=== PATIENT | male | born 1995 | race Caucasian/White ===

== ENCOUNTER 2017-06-24 13:18 | Emergency (ER) | payer OTHER ==
[2017-06-24 13:35] VITALS: BP 129/72; PULSE 96; TEMP 99.3; BMI 27.4
[2017-06-24] MEDS ORDERED: DIPHTH,PERTUSS(ACELL),TET 0.5 ML DISP.SYRIN IM ONE (13:57)
--- NOTE | 2017-06-24 13:59 | PDOC ---
History of Present Illness <Charly Brown - Last Filed: 06/24/17 15:18> - History of Present Illness Initial Comments: 06/24/17 13:53 CHIEF COMPLAINT: laceration to left leg HISTORY OF PRESENT ILLNESS: 21 yo M with no PMH presents to [facility] with laceration to lower left leg. 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 Patient states he "feels something inside my leg." He does not think he has ever had a tetanus shot. No recent travel or sick contacts. PAST MEDICAL HISTORY: Denies past medical history FAMILY HISTORY: Denies SOCIAL HISTORY: Denies tobacco, alcohol, illicit drug use. SURGICAL HISTORY: Denies REVIEW OF SYSTEMS General/Constitutional: Denies fever or chills. Denies weakness, weight change. HEENT: Denies change in vision. Denies ear pain or discharge. Denies sore throat. Cardiovascular: Denies chest pain or shortness of breath. Respiratory: Denies cough, wheezing, or hemoptysis. Gastrointestinal: Denies nausea, vomiting, diarrhea or constipation. Denies rectal bleeding. Genitourinary: Denies dysuria, frequency, or change in urination. Musculoskeletal: Denies joint or muscle swelling or pain. Denies neck or back pain. Skin and breasts: Denies rash or easy bruising. PHYSICAL EXAM General Appearance: Well-appearing, appropriately dressed. No apparent distress. HEENT: EOMI, PERRLA. No photophobia, scleral icterus. Respiratory/Chest: Lungs CTAB. Cardiovascular: RRR. S1, S2. Gastrointestinal/Abdominal: Normal bowel sounds. Abdomen soft, non-distended. No tenderness or rebound tenderness. No organomegaly, pulsatile mass, guarding , hernia, hepatomegaly, splenomegaly. Musculoskeletal/Extremities: Normal inspection. FROM of all extremities, normal capillary refill. Pelvis Stable. No CVA tenderness. No tenderness to extremities, pedal edema, swelling, erythema or deformity. Integumentary: 4 cm laceration to left medial raymond. No foreign body visualized. Appropriate color, dry, warm. 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 Fully oriented, alert. Appropriate mood/affect. Motor strength 5/5. No appreciable EOM palsy, facial droop or sensory deficit. 06/24/17 13:57 <Natty Ricardo - Last Filed: 06/24/17 15:30> - General Chief Complaint: Laceration Stated Complaint: LT LEG LACERATION Time Seen by Provider: 06/24/17 13:34 Past History <Charly Brown - Last Filed: 06/24/17 15:18> - Past Medical History Other medical history: NONE - Psycho/Social/Smoking Cessation Hx Anxiety: No Suicidal Ideation: No Smoking History: Current every day smoker Number of Cigarettes Smoked Daily: 1 Information on smoking cessation initiated: Yes 'Breaking Loose' booklet given: 06/24/17 Hx Alcohol Use: No Drug/Substance Use Hx: No Substance Use Type: None <Natty Ricardo - Last Filed: 06/24/17 15:30> - Past Medical History Allergies/Adverse Reactions: Allergies Allergy/AdvReac Type Severity Reaction Status Date / Time No Known Allergies Allergy Verified 06/24/17 13:24 Home Medications: Ambulatory Orders NK [No Known Home Medication] 06/24/17 *Physical Exam - Vital Signs Last Vital Signs Temp Pulse Resp BP Pulse Ox 99.3 F 96 H 20 129/72 98 06/24/17 13:19 06/24/17 13:19 06/24/17 13:19 06/24/17 13:19 06/24/17 13:19 <Charly Brown - Last Filed: 06/24/17 15:18> - Vital Signs Last Vital Signs Temp Pulse Resp BP Pulse Ox 99.3 F 96 H 20 129/72 98 06/24/17 13:19 06/24/17 13:19 06/24/17 13:19 06/24/17 13:19 06/24/17 13:19 <Natty Ricardo - Last Filed: 06/24/17 15:30> Procedures - Laceration/Wound Repair Left Lower Anterior Medial Leg Wound Length: 2.6 to 5.0 cm (5cm) Wound Explored: no foreign body present Wound's Depth, Shape: superficial, linear Irrigated w/ Saline: Yes Betadine Prep: Yes Anesthesia: 2% Lidocaine w/ Epi Amount of Anesthetic (ccs): 4 Wound Repaired With: Sutures Suture Size/Type: 4:0 Number of Sutures: 10 <Charly Brown - Last Filed: 06/24/17 15:18> ED Treatment Course - Medications Given in the ED: ED Medications Discontinued Medications Generic Name Dose Route Start Last Admin Trade Name Emelina PRN Reason Stop Dose Admin Diphtheria/Tetanus/Acell Pertussis 0.5 ml 06/24/17 13:57 06/24/17 14:26 Boostrix - IM 06/24/17 13:58 0.5 ml .ONCE ONE Administration <Charly Brown - Last Filed: 06/24/17 15:18> - RADIOLOGY Radiology Studies Ordered: Category Date Time Status LEG TIB/FIB-LEFT [RAD] Stat Radiology 06/24/17 13:51 Ordered <Natty Ricardo - Last Filed: 06/24/17 15:30> Medical Decision Making - Medical Decision Making 06/24/17 13:59 21 yo M with no PMH presents to [facility] with laceration to lower left leg. -Tdap IM -tib/fib x-ray r/o foreign body lac repair (performed by MD Brown, supervised by Tabitha SANCHEZ) <Natty Ricardo - Last Filed: 06/24/17 15:30> *DC/Admit/Observation/Transfer <Charly Brown - Last Filed: 06/24/17 15:18> - Discharge Dispostion Admit: No <Natty Ricardo - Last Filed: 06/24/17 15:30> Diagnosis at time of Disposition: Laceration of left leg Qualifiers: Encounter type: initial encounter Qualified Code(s): S81.812A - Laceration without foreign body, left lower leg, initial encounter - Discharge Dispostion Disposition: HOME Condition at time of disposition: Stable - Patient Instructions Printed Discharge Instructions: DI for Laceration Repair Additional Instructions: Please keep area clean and dry for the next 24-48 hours. Return in 10-14 days for suture removal. If you experience any redness, swelling, or warmth to the site of injury, or you develop fever, nausea, vomiting, or diarrhea, please return to the ER immediately. Mantenga el chanel limpia y seca brenda las prximas 24-48 horas. Vuelva en 10- 14 ceballos para la eliminacin de las puntas. Si experimenta enrojecimiento, hinchazn o calor en el sitio de la lesin, o si desarrolla fiebre, nuseas, v mitos o diarrea, por favor regrese a la mayte de emergencias de inmediato. Print Language: TAIWANESE
== END 2017-06-24 15:44 | disposition home or self-care (01) ==
LOC: JER 13:18 → JERFT 13:18
PROC: 0HQLXZZ Repair Left Lower Leg Skin, External Approach (ICD-10-PCS; principal; 2017-06-24)
PROC: 3E0234Z Introduction of Serum, Toxoid and Vaccine into Muscle, Percutaneous Approach (ICD-10-PCS; 2017-06-24)
DX: S81.812A Laceration without foreign body, left lower leg, initial encounter (principal); W25.XXXA Contact with sharp glass, initial encounter; Y93.H3 Activity, building and construction; Y92.61 Building [any] under construction as the place of occurrence of the external cause; Y99.0 Civilian activity done for income or pay
CPT/HCPCS: 73590-TC-LT; 90715; 99282-25